=== PATIENT | female | born 1985 | race Caucasian/White ===

== ENCOUNTER 2019-07-04 20:56 | Emergency (ER) | payer MEDICAID ==
[2019-07-05 00:18] VITALS: BP 122/66
== END 2019-07-04 23:35 | disposition home or self-care (01) ==
LOC: ED 20:56
DX: S02.2XXA Fracture of nasal bones, initial encounter for closed fracture (principal); S16.1XXA Strain of muscle, fascia and tendon at neck level, initial encounter; V49.49XA Driver injured in collision with other motor vehicles in traffic accident, initial encounter; Y93.I9 Activity, other involving external motion; Y92.413 State road as the place of occurrence of the external cause; Y99.8 Other external cause status